=== PATIENT | female | born 1965 | race Caucasian/White ===

== ENCOUNTER → 2023-02-28 08:09 | Outpatient (BNVA) | payer OTHER, SELFPAY | PROVIDERS: PCP Internal Medicine; Visit Provider Internal Medicine Rheumatology | DX: M79.641 Pain in right hand (principal); M79.642 Pain in left hand; M79.671 Pain in right foot; M79.672 Pain in left foot; M65.9 Synovitis and tenosynovitis, unspecified; R74.01 Elevation of levels of liver transaminase levels | CPT/HCPCS: 20550; 99202 ==

== ENCOUNTER 2023-02-28 09:15 | Outpatient (REF) | payer OTHER, SELFPAY ==
[2023-02-28 11:08] LABS: Erythrocyte Sedimentation Rate 22 MM/HR (0-20)
[2023-02-28 11:13] LABS: Alanine Aminotransferase 122 U/L (0-31); Albumin Level 4.5 g/dL (3.5-5.0); Alkaline Phosphatase 92 U/L (39-117); Anion Gap 14 (12-20); Aspartate Amino Transferase 48 U/L (5-31); Bilirubin Total 0.5 mg/dL (0.0-1.0); Blood Urea Nitrogen 13 mg/dL (9-16); C Reactive Protein 0.89 mg/dL (< or = 0.50); Calcium 9.6 mg/dL (8.4-10.2); Carbon Dioxide 24 mmol/L (22-29); Chloride 106 mmol/L (96-108); Estimated Glomerular Filt Rate > 60; Glucose Random 152 mg/dL (60-115); Potassium 4.3 mmol/L (3.3-5.1); Sodium 140 mmol/L (135-145); Total Protein 7.3 g/dL (6.5-8.0)
[2023-03-01 04:52] LABS: HBc Num1 0.13 S/CO (0.00-0.79); HBsAGNum1 0.36 S/CO (0.00-0.99); Hepatitis A Antibody IgM 0.53 Index (0-0.79); Hepatitis B Core Antibody Nonreactive (Nonreactive); Hepatitis B Surface Antigen Negative (Negative); ~HepC Num1 0.14 S/CO (0.00-0.79); ~Hepatitis A Antibody IgM Nonreactive (Nonreactive); ~Hepatitis B Surface Antibody NONREACTIVE (Nonreactive); ~Hepatitis C Antibody Nonreactive (Nonreactive)
[2023-03-01 18:29] LABS: Lyme Abs Screen <0.90 index
[2023-03-05 14:28] LABS: Mitochondrial Antibodies NEGATIVE (NEGATIVE)
[2023-03-05 23:48] LABS: Smooth Muscle Antibody <20 U (<20)
== END 2023-02-28 09:16 | disposition home or self-care (01) ==
LOC: HO.10HDL 09:15
PROVIDERS: Visit Provider Internal Medicine Rheumatology
DX: M79.641 Pain in right hand (principal); M79.642 Pain in left hand; M79.671 Pain in right foot; M79.672 Pain in left foot; M65.9 Synovitis and tenosynovitis, unspecified; R74.01 Elevation of levels of liver transaminase levels
CPT/HCPCS: 20550; 36415; 80053; 85652; 86015; 86140; 86255; 86256; 86617; 86618; 86704; 86706; 86709; 86803; 87340

== ENCOUNTER 2023-09-04 08:55 | Outpatient (REF) | payer OTHER, SELFPAY ==
--- NOTE | ~2023-09-04 | XR_ITS ---
EXAMINATION: XR KNEE, RIGHT CLINICAL INFORMATION: Pain in right knee, additional pass injury COMPARISON: None available. TECHNIQUE: Four views of the right knee. FINDINGS: Mild medial joint space narrowing and small medial marginal osteophytes. No significant joint effusion. Tiny posterior patellar osteophytes. XR/XR knee RT 4V IMPRESSION: Mild degenerative changes
== END 2023-09-04 08:56 | disposition home or self-care (01) ==
LOC: HO.XRAY 08:55
PROVIDERS: PCP Internal Medicine; Visit Provider Internal Medicine Rheumatology
DX: M25.561 Pain in right knee (principal); G56.01 Carpal tunnel syndrome, right upper limb; M65.9 Synovitis and tenosynovitis, unspecified
CPT/HCPCS: 73564; 99212

== ENCOUNTER 2023-09-04 08:55 | Outpatient (AMB) | payer OTHER, SELFPAY ==
[2023-09-04 08:57] VITALS: BP 124/76; PULSE 85; TEMP 36.1; O2SAT 99; BMI 36.3
--- NOTE | 2023-09-04 08:57 | MHC.OFFVIS ---
Intake Vital Signs 09/04/23 08:57 Height 5 ft Weight 185 lb 13.595 oz BMI 36.3 BP 124/76 Blood Pressure Location Rt brachial Position Sitting Pulse 85 Pulse Source Pulse Oximeter Temp 97 F Temp Source Skin Pulse Oximetry (%) 99 Oxygen Delivery Method Room Air Intake Visit Reasons: Bilateral Hand swelling Intake Note: Patient presents today for devin hand swelling. Reports pain and swelling has spread to other joints in the past 4-5 months. 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 She is on an aromatase inhibitor for her breast cancer, letrozole 2.5 mg daily. She was seen last in February and given bilateral thumb flexor tendon corticosteroid injections for tenosynovitis. Those did help both hands although the right hand pain has started to come back. She however also was developed now some pain in the right knee. This occurred while she was working about 3 weeks ago. 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 The knee was swollen for a few days. She still has trouble doing squats but the swelling has subsided. She does take occasional naproxen or Tylenol. She does not recall prior problems with the knee. She also has developed paresthesias in the right hand over the last 6-8 weeks. This seems to occur at night but also with activity during the day. 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 Adenoma of colon Macromastia Surgical History Hx of hysterectomy S/P breast lumpectomy H/O breast biopsy Family History Mother Hyperlipidemia Diabetes HTN (hypertension) Depression Father Bone cancer Paternal Aunt Breast cancer Brother Anxiety Social History (Updated 09/04/23 @ 09:00 by Ida Diaz [facility]) Household Members: Significant Other and Children Alcohol intake: current Alcohol intake frequency: a few times a week Alcohol type: wine e-Cigarette/Vaping Use: Currently Using Review of Systems Const Details: She was able to lose some weight when she was taking the metformin for prediabetes. Negative for appetite change, fever, chills, malaise and fatigue Eyes Details: Negative for vision change, dry eyes,headaches and dizziness GI Details: Negative indigestion/heartburn, nausea, abdominal pain, bowel changes, diarrhea, constipation and bloody stool. Skin/Breast Details: Negative for itching, rash, hives, Raynaud's symptoms, sun sensitivity, and skin cancer Neuro Details: Intermittent right hand numbness, a bit more prominent over the fingertips of the 2nd 3rd fingers. Negative for epilepsy, palsy, stroke, changes in speech,and weakness Psych Details: She is on some venlafaxine for depression but wants to consider tapering off it. She does admit to more anxiety when she has tried to taper it. Negative for depression and stress Endo Details: Negative for polyuria and polydypsia Fer/Lymph Details: Negative for excessive bruising or bleeding. Physical Exam Vital Signs: Last Vital Signs Temp 97 F 09/04/23 08:57 Pulse 85 09/04/23 08:57 BP 124/76 09/04/23 08:57 Pulse Ox 99 09/04/23 08:57 Oxygen Delivery Method Room Air 09/04/23 08:57 BMI result Body Mass Index 36.3 APPEARANCE: Patient in no acute distress EXTREMITIES: No edema, no calf tenderness, normal peripheral pulses. NEURO: Oriented and alert x3. No focal weakness. Reflexes symmetric. Gait normal. SKIN: No inflammatory or neoplastic lesions. Normal color and turgor JOINT EXAM:?? Cervical Spine:? Full range of motion with mild discomfort. No tenderness. Thoracic Spine:? No scoliosis.? No tenderness on palpation. Lumbar Spine:.? Alignment normal.? Full range of motion with slight pain at full flexion. No tenderness. Chest Wall:.? No tenderness, swelling, increased warmth or erythema. Hands:.? Right: no pain with range of motion of the thumb. There is some slight flexor tendon tenderness without swelling or triggering today. There is no tenderness or swelling of the MCP joints. The thumb IP has some mild bony enlargement without tenderness. Other joints have normal pain-free range of motion without tenderness, swelling, increased warmth or erythema. There is no thenar atrophy or sensory loss. Left: no tenderness of the flexor tendon no swelling or triggering Elsewhere no tenderness or swelling. No other flexor tenderness, triggering, thenar atrophy or sensory loss. Wrists: Right: Positive Tinel sign but negative Phalen's sign. No tenderness or swelling. Pain-free range of motion. Left:? Normal pain-free range of motion without tenderness, swelling, increased warmth or erythema. Negative Phalen's and Tinel signs. Elbows:. Normal pain-free range of motion without tenderness, swelling, increased warmth or erythema. Shoulders:.?? Full range of motion without pain. No tenderness, weakness, swelling, increased warmth or erythema. Hips:.? Full range of motion without pain. Hip bursa:.? No tenderness. Knees:.? Right: Mild pain with full extension or flexion. Most of the pain is on the medial aspect of the knee. There is mild medial compartment tenderness and pain with stressing of the medial compartment. There is no redness or effusion. There is trace patellofemoral crepitus. Left:? Normal pain-free range of motion with slight patellofemoral crepitus. There is no tenderness without effusion, swelling, increased warmth or erythema.? Ankles:.? Normal pain-free range of motion with slight tenderness but no swelling, increased warmth or erythema. Feet:.? Normal pain-free range of motion. There is slight tenderness over the 1st 2 MTP joints but they do not seem to be swollen. Elsewhere there is no sensory loss, tenderness, swelling, increased warmth or erythema. Tender points:? No tenderness to digital palpation at the occiput, trapezius, second rib, lateral epicondyle, knees, greater trochanter and gluteal area bilaterally. ? ? Results Reviewed Results Reviewed: Laboratory Tests 02/28/23 09:28 ESR 22 H Creatinine 0.77 AST 48 H ALT 122 H C-Reactive Protein 0.89 H Anti-Mitochondrial Ab NEGATIVE Anti-Smooth Muscle Ab <20 Assessment & Plan Assessment & Plan (1) Knee pain, right: Code(s): M25.561 - Pain in right knee (2) Carpal tunnel syndrome on right: Code(s): G56.01 - Carpal tunnel syndrome, right upper limb (3) Flexor tenosynovitis of thumb: Code(s): M65.9 - Synovitis and tenosynovitis, unspecified Plan She has had some improvement in the thumb flexor tenosynovitis with corticosteroid injections. I told her we cannot do these very frequently and would not do any further injections until 6 months after the previous ones. Additionally if symptoms continue in this fashion a surgical approach would be more appropriate. It is possible that the letrozole is giving her these arthralgias. I told her I would not recommend tapering the antidepressants since in patients with aromatase induced arthralgias antidepressants have been somewhat helpful. She has also developed hand paresthesias suggesting nerve compression at the wrist consistent with a right carpal tunnel syndrome. I gave her a printed prescription for a wrist splint to wear nightly for 6 weeks to see if that improves those symptoms. She also has medial compartment tenderness in the right knee following a twisting injury with the knee flexed. This sounds like it could be a meniscal injury. Symptoms have improved a bit on their own but I think physical therapy may be helpful as well. She will be referred for PT. She is worried about her blood pressures so I suggested acetaminophen up to 1 g t.i.d. rather than naproxen. A recheck in 2 months would be reasonable. If paresthesias continue, then nerve conduction studies would be reasonable to consider. Additionally if the knee remains a problem she may need orthopedic evaluation and MRI scanning. An x-ray of the knee is ordered for today. Orders: Orders PT Evaluation and Treatment Today M25.561 - Pain in right knee Medications: New arm brace (Wrist Brace) wear nightly on right wrist 1 ea 0RF G56.02 - Carpal tunnel syndrome, left upper limb Coding Level of Care Code Est Pt Level 4 (03862) Diagnoses Knee pain, right M25.561 Carpal tunnel syndrome on right G56.01 Flexor tenosynovitis of thumb M65.9
== END 2023-09-04 09:42 | disposition home or self-care (01) ==
LOC: HO.RHE 08:55
PROVIDERS: PCP Internal Medicine; Visit Provider Internal Medicine Rheumatology
DX: M25.561 Pain in right knee (principal); G56.01 Carpal tunnel syndrome, right upper limb; M65.9 Synovitis and tenosynovitis, unspecified
CPT/HCPCS: 99214

== ENCOUNTER 2023-11-05 09:17 | Outpatient (AMB) | payer OTHER, SELFPAY ==
--- NOTE | 2023-11-05 09:19 | MHC.OFFVIS ---
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 Reports worsening devin hand pain and numbness. Manager Telecom Required: No Accompanied by: Self / Same As Patient Allergies No Known Allergies Allergy (Verified 11/05/23 09:27) HPI HPI Comments History of Present Illness Details Ms. Butler 57-year-old female, returns for follow-up evaluation of her bilateral hand pain. She has a history of type 2 diabetes mellitus, total hysterectomy secondary to uterine and cervical cancer and breast cancer. She is on an aromatase inhibitor for her breast cancer, letrozole 2.5 mg daily. She was seen last in August 2023 and given bilateral wrist injections for CTS. In February 2023 she was given bilateral thumb flexor tendon corticosteroid injections for tenosynovitis. Those did help both hands although the right hand pain has started to come back and she has been having numbness to ring and middle fingers since CTS injections. Her thumbs also lock intermittently and is very painful when she opens them to release the triggering. She continues with pain in the right knee. This occurred while she was working July 2023. 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 The knee was swollen for a few days. She still has trouble doing squats but the swelling has subsided. She does take occasional naproxen or Tylenol. She does not recall prior problems with the knee. She also has continued paresthesias in the right hand. This seems to occur at night but also with activity during the day. 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 Adenoma of colon Macromastia Surgical History Hx of hysterectomy S/P breast lumpectomy H/O breast biopsy Family History Mother Hyperlipidemia Diabetes HTN (hypertension) Depression Father Bone cancer Paternal Aunt Breast cancer Brother Anxiety Social History Household Members: Significant Other and Children Alcohol intake: current Alcohol intake frequency: a few times a week Alcohol type: wine e-Cigarette/Vaping Use: Currently Using Review of Systems Const All systems reviewed & are unremarkable except as noted in HPI and below Physical Exam Vital Signs: Last Vital Signs Temp 97 F 11/05/23 09:26 Pulse 85 11/05/23 09:26 BP 112/60 11/05/23 09:26 Pulse Ox 96 11/05/23 09:26 Oxygen Delivery Method Room Air 11/05/23 09:26 BMI result Body Mass Index 36.6 APPEARANCE: Patient in no acute distress EXTREMITIES: No edema, no calf tenderness, normal peripheral pulses. NEURO: Oriented and alert x3. No focal weakness. Reflexes symmetric. Gait normal. SKIN: No inflammatory or neoplastic lesions. Normal color and turgor JOINT EXAM:?? Cervical Spine:? Full range of motion with mild discomfort. No tenderness. Thoracic Spine:? No scoliosis.? No tenderness on palpation. Lumbar Spine:.? Alignment normal.? Full range of motion with slight pain at full flexion. No tenderness. Chest Wall:.? No tenderness, swelling, increased warmth or erythema. Hands:.? Right: no pain with range of motion of the thumb. There is some slight flexor tendon tenderness without swelling or triggering today. There is no tenderness or swelling of the MCP joints. The thumb IP has some mild bony enlargement without tenderness. Other joints have normal pain-free range of motion without tenderness, swelling, increased warmth or erythema. There is no thenar atrophy or sensory loss. Left: no tenderness of the flexor tendon no swelling or triggering Elsewhere no tenderness or swelling. No other flexor tenderness, triggering, thenar atrophy or sensory loss. Wrists: Right: Positive Tinel sign but negative Phalen's sign. No tenderness or swelling. Pain-free range of motion. Left:? Normal pain-free range of motion without tenderness, swelling, increased warmth or erythema. Negative Phalen's and Tinel signs. Elbows:. Normal pain-free range of motion without tenderness, swelling, increased warmth or erythema. Shoulders:.?? Full range of motion without pain. No tenderness, weakness, swelling, increased warmth or erythema. Hips:.? Full range of motion without pain. Hip bursa:.? No tenderness. Knees:.? Right: Mild pain with full extension or flexion. Most of the pain is on the medial aspect of the knee. There is mild medial compartment tenderness and pain with stressing of the medial compartment. There is no redness or effusion. There is trace patellofemoral crepitus. Left:? Normal pain-free range of motion with slight patellofemoral crepitus. There is no tenderness without effusion, swelling, increased warmth or erythema.? Ankles:.? Normal pain-free range of motion with slight tenderness but no swelling, increased warmth or erythema. Feet:.? Normal pain-free range of motion. There is slight tenderness over the 1st 2 MTP joints but they do not seem to be swollen. Elsewhere there is no sensory loss, tenderness, swelling, increased warmth or erythema. Tender points:? No tenderness to digital palpation at the occiput, trapezius, second rib, lateral epicondyle, knees, greater trochanter and gluteal area bilaterally. ? ? Assessment & Plan Assessment & Plan (1) Knee pain, right: Code(s): M25.561 - Pain in right knee Qualifiers: Chronicity: chronic Qualified Code(s): M25.561 - Pain in right knee; G89.29 - Other chronic pain (2) Carpal tunnel syndrome on right: Code(s): G56.01 - Carpal tunnel syndrome, right upper limb (3) Flexor tenosynovitis of thumb: Code(s): M65.9 - Synovitis and tenosynovitis, unspecified (4) Bilateral hand pain: Code(s): M79.641 - Pain in right hand; M79.642 - Pain in left hand Plan #Bilateral hand pain/tenosynovitis: While she has had some improvement in the thumb flexor tenosynovitis with corticosteroid injections, there is return of symptoms and her thumbs continue to lock. I reiterated to her that we cannot do these very frequently and would not do any further injections until 6 months after the previous ones. Additionally if symptoms continue in this fashion a surgical approach would be more appropriate. I have not see labs for Rheumatology workup. Given that she continues with elevated CRP/ESR and hand pain and swelling, it is reasonable to order these and evaluate for RA and inflammatory causes. #Right knee pain: She also has medial compartment tenderness in the right knee following a twisting injury with the knee flexed. This sounds like it could be a meniscal injury. She had not started PT as referred from last visit. The pain continues down the back of her leg and she feels a pull in the muscles and further pain under her feet. With this I think she would benefit from Ortho evaluation who may then determine if MRI scanning is necessary. An x-ray of the knee showed mild OA which I do not think matches her symptoms. #Carpal Tunnel Syndrome: She has continue hand paresthesias suggesting nerve compression at the wrist consistent with a right carpal tunnel syndrome. She has been wearing wrist splint nightly but denies much improvement in those symptoms. At this point it makes sense to have an EMG study to determine the extent of nerve compression to her hands. I have spent 35 minutes reviewing chart, evaluating and examining patient, and documenting. Orders: Orders C Reactive Protein Today M19.90 - Unspecified osteoarthritis, unspecified site, M79.641 - Pain in right hand, M79.642 - Pain in left hand, M79.89 - Other specified soft tissue disorders Comprehensive Met. Panel Today M19.90 - Unspecified osteoarthritis, unspecified site, M79.641 - Pain in right hand, M79.642 - Pain in left hand, M79.89 - Other specified soft tissue disorders Creatine Kinase Total Today M19.90 - Unspecified osteoarthritis, unspecified site, M79.641 - Pain in right hand, M79.642 - Pain in left hand, M79.89 - Other specified soft tissue disorders Erythrocyte Sedimentation Rate Today M19.90 - Unspecified osteoarthritis, unspecified site, M79.641 - Pain in right hand, M79.642 - Pain in left hand, M79.89 - Other specified soft tissue disorders Anti Extractable Nuclear Ag Today M19.90 - Unspecified osteoarthritis, unspecified site, M79.641 - Pain in right hand, M79.642 - Pain in left hand, M79.89 - Other specified soft tissue disorders T Spot TB Today M19.90 - Unspecified osteoarthritis, unspecified site, M79.641 - Pain in right hand, M79.642 - Pain in left hand, M79.89 - Other specified soft tissue disorders Uric Acid Today M19. - Unspecified osteoarthritis, unspecified site, M79.641 - Pain in right hand, M79.642 - Pain in left hand, M79.89 - Other specified soft tissue disorders Rheumatoid Factor Today M19. - Unspecified osteoarthritis, unspecified site, M79.641 - Pain in right hand, M79.642 - Pain in left hand, M79.89 - Other specified soft tissue disorders Cyclic Citrullinated Peptide Today M1. - Unspecified osteoarthritis, unspecified site, M79.641 - Pain in right hand, M79.642 - Pain in left hand, M79.89 - Other specified soft tissue disorders Complete Blood Count Auto Diff Today M19. - Unspecified osteoarthritis, unspecified site, M79.641 - Pain in right hand, M79.642 - Pain in left hand, M79.89 - Other specified soft tissue disorders Hepatitis A,B,C Profile Today M1. - Unspecified osteoarthritis, unspecified site, M79.641 - Pain in right hand, M79.642 - Pain in left hand, M79.89 - Other specified soft tissue disorders PASHA Reflex Titer and Pattern Today M1. - Unspecified osteoarthritis, unspecified site, M79.641 - Pain in right hand, M79.642 - Pain in left hand, M79.89 - Other specified soft tissue disorders HLA B27 Today M1. - Unspecified osteoarthritis, unspecified site, M79.641 - Pain in right hand, M79.642 - Pain in left hand, M79.89 - Other specified soft tissue disorders NE electromyogram (EMG) Today G56.01 - Carpal tunnel syndrome, right upper limb, R20.2 - Paresthesia of skin Referrals Orthopedics Referral M25.561 - Pain in right knee Coding Level of Care Code Est Pt Level 4 (61927) Diagnoses Chronic pain of right knee M25.561; G89.29 Chronicity: chronic Carpal tunnel syndrome on right G56.01 Flexor tenosynovitis of thumb M65.9 Bilateral hand pain M79.641; M79.642
[2023-11-05 09:26] VITALS: BP 112/60; PULSE 85; TEMP 36.1; O2SAT 96; BMI 36.6
== END 2023-11-05 10:02 | disposition home or self-care (01) ==
LOC: HO.RHE 09:17
PROVIDERS: PCP Internal Medicine; Visit Provider Nurse Practitioner Family
DX: M25.561 Pain in right knee (principal); G89.29 Other chronic pain; G56.01 Carpal tunnel syndrome, right upper limb; M65.9 Synovitis and tenosynovitis, unspecified; M79.641 Pain in right hand; M79.642 Pain in left hand
CPT/HCPCS: 99214

== ENCOUNTER → 2023-11-05 09:17 | Outpatient (BNVA) | payer OTHER, SELFPAY | PROVIDERS: PCP Internal Medicine; Visit Provider Nurse Practitioner Family | DX: G56.01 Carpal tunnel syndrome, right upper limb (principal); M25.561 Pain in right knee; M65.9 Synovitis and tenosynovitis, unspecified; M79.641 Pain in right hand; M79.642 Pain in left hand; G89.29 Other chronic pain | CPT/HCPCS: 99212 ==

== ENCOUNTER 2023-11-14 13:31 | Outpatient (AMB) | payer OTHER, SELFPAY ==
--- NOTE | 2023-11-14 13:52 | A.OFFVIS_ITS ---
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 Patient has used tylenol, ice, and heat but pain is still there. The patient states that her right knee will give out several times per day. She has done physical therapy exercises which aggravated her pain. 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 Adenoma of colon Macromastia Surgical History Hx of hysterectomy S/P breast lumpectomy H/O breast biopsy Family History Mother Hyperlipidemia Diabetes HTN (hypertension) Depression Father Bone cancer Paternal Aunt Breast cancer Brother Anxiety Social History Household Members: Significant Other and Children Alcohol intake: current Alcohol intake frequency: a few times a week Alcohol type: wine e-Cigarette/Vaping Use: Currently Using Physical Exam Vital Signs: BMI result Body Mass Index 36.6 Const Other: Well-nourished well-developed very friendly female awake alert and oriented x3 in no acute distress Extrem Other: Bilateral lower extremity examination shows good capillary refill, no skin lesions noted, normal sensation light touch Right knee examination shows a minimal effusion, minimal crepitus with range of motion, tenderness along her medial joint line, positive Brad's test, no instability Results Reviewed Results Reviewed: Standing full weight-bearing x-rays of the patient's right knee show minimal joint space narrowing, no acute bony abnormalities Assessment & Plan Assessment & Plan (1) Knee pain, right: Code(s): M25.561 - Pain in right knee Qualifiers: Chronicity: chronic Qualified Code(s): M25.561 - Pain in right knee; G89.29 - Other chronic pain Plan Ms. Mcleod presents with right knee pain and mechanical symptoms most likely due to a tear of her medial meniscus. Thus, I will send the patient for an MRI of her right knee for further evaluation. I will see the patient back once the MRI is completed to further discuss the findings and treatment options. Feel free to call me at any time should questions regarding her orthopedic management arise. Thank you very much for asking me to see this very friendly patient. I spent 22 minutes in reviewing the patient's records and imaging studies, seeing the patient and documenting in the medical record. Orders: Orders MR knee RT wo con 11/14/23 M25.561 - Pain in right knee Coding Level of Care Code New Pt Level 2 (11433) Diagnoses Chronic pain of right knee M25.561; G89.29 Chronicity: chronic
[2023-11-14 13:53] VITALS: BMI 36.6
== END 2023-11-14 14:33 | disposition home or self-care (01) ==
PROVIDERS: PCP Internal Medicine; Visit Provider Orthopaedic Surgery
DX: M25.561 Pain in right knee (principal); G89.29 Other chronic pain
CPT/HCPCS: 99202

== ENCOUNTER → 2023-11-14 13:31 | Outpatient (BNVA) | payer OTHER, SELFPAY | PROVIDERS: PCP Internal Medicine; Visit Provider Orthopaedic Surgery | DX: M25.561 Pain in right knee (principal); G89.29 Other chronic pain | CPT/HCPCS: 99202 ==

== ENCOUNTER 2024-01-03 09:35 | Outpatient (REF) | payer OTHER, SELFPAY ==
--- NOTE | 2024-01-03 09:39 | EMG_ITS ---
Chief complaint: Right hand pain and numbness Reason for referral: Evaluate for Carpal Tunnel Syndrome Referred by: Taylor Birch NP Procedure done: Right upper extremity NCS/EMG Precautions and/or limitations: None Nerve Conduction Studies Anti Sensory Summary Table ?Stim Site NR Onset (ms) Norm Onset (ms) Peak (ms) Norm Peak (ms) O-P Amp (?V) Norm O-P Amp Site1 Site2 Delta-0 (ms) Dist (cm) Buddy (m/s) Norm Buddy (m/s) Right Median Anti Sensory (2nd Digit) Wrist ? 5.3 6.6 <3.6 10.0 >10 Wrist 2nd Digit 5.3 14.0 26 Right Radial Anti Sensory (Thumb) Forearm ? 1.3 2.0 <3.1 33.9 Forearm Thumb 1.3 0.0 Right Ulnar Anti Sensory (5th Digit) Wrist ? 2.5 3.3 <3.7 15.6 >15.0 Wrist 5th Digit 2.5 14.0 56 Motor Summary Table ?Stim Site NR Onset (ms) Norm Onset (ms) O-P Amp (mV) Norm O-P Amp iAmp (mV) Amp (1st) (%) Site1 Site2 Delta-0 (ms) Dist (cm) Buddy (m/s) Norm Buddy (m/s) Right Median Motor (Abd Poll Brev) Wrist ? 6.4 <3.9 12.2 >4.5 14.3 100.0 Elbow Wrist 3.3 18.0 55 >45 Elbow ? 9.7 11.7 14.0 95.9 Right Ulnar Motor (Abd Dig Minimi) Wrist ? 3.0 <3.0 10.3 >5 13.8 100.0 B Elbow Wrist 2.7 16.0 59 >45 B Elbow ? 5.7 9.6 13.0 93.2 A Elbow B Elbow 1.3 10.0 77 >45 A Elbow ? 7.0 10.2 13.6 99.0 EMG ?Side Muscle Nerve Root Ins Act Fibs Psw Amp Dur Poly Recrt Int Pat Comment Right 1stDorInt Ulnar C8-T1 Nml Nml Nml Nml Nml 0 Nml Complete Right FlexCarRad Median C6-7 Nml Nml Nml Nml Nml 0 Nml Complete Right Biceps Musculocut C5-6 Nml Nml Nml Nml Nml 0 Nml Complete Right Triceps Radial C6-7-8 Nml Nml Nml Nml Nml 0 Nml Complete Right Deltoid Axillary C5-6 Nml Nml Nml Nml Nml 0 Nml Complete The limb temperature was monitored continuously and remained between 32-36 degrees C during the performance of the NCS. FINDINGS: Right median motor nerve showed prolonged distal latency, normal amplitude and normal conduction velocity. Right median sensory nerve showed prolonged peak latency. All other nerves tested were within normal. Concentric needle EMG was performed in selected muscles of the right upper extremity. Study did not reveal signs of electric abnormalities as shown in the table below. IMPRESSION: 1. This is an abnormal study. 2. There is electrodiagnostic evidence for right moderate-severe median neuropathy at the wrist, consistent with carpal tunnel syndrome. 3. There is no electrodiagnostic evidence for ulnar neuropathy, brachial plexopathy, or cervical radiculopathy. Thank you for your kind referral. Daisy Piña MD, JOSE LUIS Board Certified, [place] Board [employer] and [employer] (ABPMR) Board Certified, [place] Board of Electrodiagnostic [employer] (ABEM) [place] [id number] [facility]
== END 2024-01-03 09:36 | disposition home or self-care (01) ==
LOC: HO.NEURO 09:35
PROVIDERS: PCP Internal Medicine; Visit Provider Nurse Practitioner Family
DX: G56.01 Carpal tunnel syndrome, right upper limb (principal); R20.2 Paresthesia of skin
CPT/HCPCS: 95886; 95909

== ENCOUNTER → 2024-01-03 09:39 | Outpatient (BNV) | payer OTHER, SELFPAY | PROVIDERS: PCP Internal Medicine; Visit Provider Physical Medicine & Rehabilitation | DX: G56.01 Carpal tunnel syndrome, right upper limb (principal); G56.11 Other lesions of median nerve, right upper limb | CPT/HCPCS: 95886; 95909 ==

== ENCOUNTER 2024-02-20 18:07 | Outpatient (REF) | payer OTHER, SELFPAY ==
--- NOTE | ~2024-02-20 | MR_ITS ---
EXAMINATION: MR KNEE WITHOUT CONTRAST, RIGHT CLINICAL INFORMATION: Right knee pain. COMPARISON: None available. TECHNIQUE: MRI of the knee without contrast was performed using routine sequences on a high-field scanner. FINDINGS: MENISCI: Medial Meniscus: A complex tear is present at the posterior horn and body with an undersurface flap fragment extending into the meniscotibial recess. This flap fragment measures 1.2 cm AP. There is a radial component to the tear at the posterior horn, occurring 1.5 cm from the posterior root. Lateral Meniscus: Intact. LIGAMENTS: Cruciate: Intact. Collateral: Edema signal around the MCL is likely reactive to the underlying meniscal abnormality. Collateral ligaments are intact. EXTENSOR MECHANISM: Intact. ARTICULAR CARTILAGE/BONE: Patellofemoral Compartment: Chondral fissures are present at the median ridge of the patella and at the central trochlea and medial trochlear facet. Small marginal osteophytes. There is a thin medial plica. Medial Compartment: Small marginal osteophytes. Minimal focal subchondral edema at the medial tibial plateau. Lateral Compartment: Normal. JOINT FLUID AND BURSAE: Small Posye's cyst. No joint effusion. MR/MR knee RT wo con IMPRESSION: 1. Complex flap tear at the posterior horn and body of the medial meniscus. 2. Minimal patellofemoral and medial compartment osteoarthritis. 3. Small Posey's cyst.
== END 2024-02-20 18:08 | disposition home or self-care (01) ==
LOC: HO.MRI 18:07
PROVIDERS: PCP Internal Medicine; Visit Provider Orthopaedic Surgery
DX: M25.561 Pain in right knee (principal)
CPT/HCPCS: 73721

== ENCOUNTER 2024-02-26 13:34 | Outpatient (AMB) | payer OTHER, SELFPAY ==
[2024-02-26 13:37] VITALS: BMI 36.5
--- NOTE | 2024-02-26 13:37 | MHC.OFFVIS ---
Vital Signs 02/26/24 13:37 Height 5 ft Weight 187 lb BMI 36.5 Intake Visit Reasons: OV- MRI review Right knee Intake Note: Carrie is a 57 year old female who presents with complaints of progressively worsening right knee pain and giving way. 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 Patient has used tylenol, ice, and heat but pain is still there. The patient states that her right knee will give out several times per day. She has done physical therapy exercises which aggravated her pain. 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 Adenoma of colon Macromastia Surgical History Hx of hysterectomy S/P breast lumpectomy H/O breast biopsy Family History Mother Hyperlipidemia Diabetes HTN (hypertension) Depression Father Bone cancer Paternal Aunt Breast cancer Brother Anxiety Social History Household Members: Significant Other and Children Alcohol intake: current Alcohol intake frequency: a few times a week Alcohol type: wine e-Cigarette/Vaping Use: Currently Using Physical Exam Vital Signs: BMI result Body Mass Index 36.5 Const Other: Well-nourished well-developed very friendly female awake alert and oriented x3 in no acute distress Extrem Other: Bilateral lower extremity examination shows good capillary refill, no skin lesions noted, normal sensation light touch Right knee examination shows a minimal effusion, minimal crepitus with range of motion, tenderness along her medial and lateral joint lines, positive Brad's test, no instability Results Reviewed Results Reviewed: Standing full weight-bearing x-rays of the patient's right knee show minimal joint space narrowing, no acute bony abnormalities MRI of the patient's right knee shows mild diffuse degenerative changes as well as tearing of the medial and lateral menisci, no acute bony abnormalities Assessment & Plan Assessment & Plan (1) Tear of medial meniscus of right knee: Code(s): S83.241A - Other tear of medial meniscus, current injury, right knee, initial encounter Category: Medical Plan Ms. Mcleod presents with progressively worsening right knee pain and mechanical symptoms due to tearing of her medial and lateral menisci. I had a lengthy discussion with the patient regarding the treatment options. At this point she has failed continued non operative treatments. The risks and benefits of right knee arthroscopic surgery were discussed at length with the patient. The patient wishes to proceed with surgery. Surgery will most likely involve right knee diagnostic arthroscopy with arthroscopic partial medial and lateral meniscectomies. She does understand that she may not get 100% relief of her symptoms depending on the severity of her degenerative changes. The patient will be scheduled for next available date. She will follow-up as instructed. Feel free to call me at any time should questions regarding her orthopedic management arise. Thank you very much for asking me to see this very friendly patient. I spent 21 minutes in reviewing the patient's records and imaging studies, seeing the patient and documenting in the medical record. Coding Level of Care Code Est Pt Level 3 (69749) Diagnoses Tear of medial meniscus of right knee S83.241A
== END 2024-02-26 14:11 | disposition home or self-care (01) ==
PROVIDERS: PCP Internal Medicine; Visit Provider Orthopaedic Surgery
DX: S83.241A Other tear of medial meniscus, current injury, right knee, initial encounter (principal)
CPT/HCPCS: 99213

== ENCOUNTER → 2024-02-26 13:34 | Outpatient (BNVA) | payer OTHER, SELFPAY | PROVIDERS: PCP Internal Medicine; Visit Provider Orthopaedic Surgery | DX: S83.241A Other tear of medial meniscus, current injury, right knee, initial encounter (principal); X50.1XXA Overexertion from prolonged static or awkward postures, initial encounter; Y93.F2 Activity, caregiving, lifting; Y92.198 Other place in other specified residential institution as the place of occurrence of the external cause; Y99.0 Civilian activity done for income or pay | CPT/HCPCS: 99212 ==

== ENCOUNTER 2024-03-25 11:31 | Outpatient (AMB) | payer OTHER, SELFPAY ==
--- NOTE | 2024-03-25 11:36 | MHC.OFFVIS ---
Vital Signs 03/25/24 11:40 Height 5 ft Weight 177 lb 11.081 oz BMI 34.7 BP 142/92 H Blood Pressure Location Rt brachial Position Sitting Pulse 78 Pulse Oximetry (%) 98 Intake Visit Reasons: Hand Pain/Right Knee pain Intake Note: Patient presents to office today for hand and knee pain follow up. EMG done 01/03/24. Reports worsening pains. Allergies No Known Allergies Allergy (Verified 03/25/24 11:40) HPI Comments Details: Ms. Butler 57-year-old female, returns for follow-up evaluation of her bilateral hand pain. She has a history of type 2 diabetes mellitus, total hysterectomy secondary to uterine and cervical cancer and breast cancer. She is on an aromatase inhibitor for her breast cancer, letrozole 2.5 mg daily. She was seen last in August 2023 and given bilateral wrist injections for CTS. In February 2023 she was given bilateral thumb flexor tendon corticosteroid injections for tenosynovitis. Those did help both hands although the right hand pain has started to come back and she has been having numbness to ring and middle fingers since CTS injections. Her thumbs also lock intermittently and is very painful when she opens them to release the triggering. She continues with pain in the right knee. This occurred while she was working July 2023. 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 The knee was swollen for a few days. She still has trouble doing squats but the swelling has subsided. She does take occasional naproxen or Tylenol. She does not recall prior problems with the knee. She also has continued paresthesias in the right hand. This seems to occur at night but also with activity during the day. 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 Adenoma of colon Macromastia Surgical History Hx of hysterectomy S/P breast lumpectomy H/O breast biopsy Family History Mother Hyperlipidemia Diabetes HTN (hypertension) Depression Father Bone cancer Paternal Aunt Breast cancer Brother Anxiety Social History (Updated 03/25/24 @ 11:41 by LEELA Kathleen) Household Members: Significant Other and Children Alcohol intake: current Alcohol intake frequency: holidays/special occasions only Patient Tobacco Use Status: Former Tobacco user Review of Systems Const All systems reviewed & are unremarkable except as noted in HPI and below Physical Exam Vital Signs: Last Vital Signs Pulse 78 03/25/24 11:40 BP 142/92 H 03/25/24 11:40 Pulse Ox 98 03/25/24 11:40 BMI result Body Mass Index 34.7 APPEARANCE: Patient in no acute distress EXTREMITIES: No edema, no calf tenderness, normal peripheral pulses. NEURO: Oriented and alert x3. No focal weakness. Reflexes symmetric. Gait normal. SKIN: No inflammatory or neoplastic lesions. Normal color and turgor JOINT EXAM:?? Cervical Spine:? Full range of motion with mild discomfort. No tenderness. Thoracic Spine:? No scoliosis.? No tenderness on palpation. Lumbar Spine:.? Alignment normal.? Full range of motion with slight pain at full flexion. No tenderness. Chest Wall:.? No tenderness, swelling, increased warmth or erythema. Hands:.? Right: no pain with range of motion of the thumb. There is some slight flexor tendon tenderness without swelling or triggering today. There is no tenderness or swelling of the MCP joints. The thumb IP has some mild bony enlargement without tenderness. Other joints have normal pain-free range of motion without tenderness, swelling, increased warmth or erythema. There is no thenar atrophy or sensory loss. Left: no tenderness of the flexor tendon no swelling or triggering Elsewhere no tenderness or swelling. No other flexor tenderness, triggering, thenar atrophy or sensory loss. Wrists: Right: Positive Tinel sign but negative Phalen's sign. No tenderness or swelling. Pain-free range of motion. Left:? Normal pain-free range of motion without tenderness, swelling, increased warmth or erythema. Negative Phalen's and Tinel signs. Elbows:. Normal pain-free range of motion without tenderness, swelling, increased warmth or erythema. Shoulders:.?? Full range of motion without pain. No tenderness, weakness, swelling, increased warmth or erythema. Hips:.? Full range of motion without pain. Hip bursa:.? No tenderness. Knees:.? Right: Mild pain with full extension or flexion. Most of the pain is on the medial aspect of the knee. There is mild medial compartment tenderness and pain with stressing of the medial compartment. There is no redness or effusion. There is trace patellofemoral crepitus. Left:? Normal pain-free range of motion with slight patellofemoral crepitus. There is no tenderness without effusion, swelling, increased warmth or erythema.? Ankles:.? Normal pain-free range of motion with slight tenderness but no swelling, increased warmth or erythema. Feet:.? Normal pain-free range of motion. There is slight tenderness over the 1st 2 MTP joints but they do not seem to be swollen. Elsewhere there is no sensory loss, tenderness, swelling, increased warmth or erythema. Tender points:? No tenderness to digital palpation at the occiput, trapezius, second rib, lateral epicondyle, knees, greater trochanter and gluteal area bilaterally. ? ? Results Reviewed Results Reviewed: Laboratory Tests 03/25/24 12:25 WBC 5.4 RBC 4.56 Hgb 13.9 Hct 41.6 ESR 25 H Calcium 10.3 H D AST 20 ALT 27 C-Reactive Protein 0.57 H Rheumatoid Factor < 13.0 Cycl Citrul Peptide IgG <16 PASHA Screen NEGATIVE Sm (Powell) Antibody <1.0 NEG SM/IMMIGRATION CASE MANAGER IgG Antibody <1.0 NEG HLA-B27 Negative The limb temperature was monitored continuously and remained between 32-36 degrees C during the performance of the NCS. FINDINGS: Right median motor nerve showed prolonged distal latency, normal amplitude and normal conduction velocity. Right median sensory nerve showed prolonged peak latency. All other nerves tested were within normal. Concentric needle EMG was performed in selected muscles of the right upper extremity. Study did not reveal signs of electric abnormalities as shown in the table below. IMPRESSION: 1. This is an abnormal study. 2. There is electrodiagnostic evidence for right moderate-severe median neuropathy at the wrist, consistent with carpal tunnel syndrome. 3. There is no electrodiagnostic evidence for ulnar neuropathy, brachial plexopathy, or cervical radiculopathy. EXAMINATION: MR KNEE WITHOUT CONTRAST, RIGHT CLINICAL INFORMATION: Right knee pain. COMPARISON: None available. TECHNIQUE: MRI of the knee without contrast was performed using routine sequences on a high-field scanner. FINDINGS: MENISCI: Medial Meniscus: A complex tear is present at the posterior horn and body with an undersurface flap fragment extending into the meniscotibial recess. This flap fragment measures 1.2 cm AP. There is a radial component to the tear at the posterior horn, occurring 1.5 cm from the posterior root. Lateral Meniscus: Intact. LIGAMENTS: Cruciate: Intact. Collateral: Edema signal around the MCL is likely reactive to the underlying meniscal abnormality. Collateral ligaments are intact. EXTENSOR MECHANISM: Intact. ARTICULAR CARTILAGE/BONE: Patellofemoral Compartment: Chondral fissures are present at the median ridge of the patella and at the central trochlea and medial trochlear facet. Small marginal osteophytes. There is a thin medial plica. Medial Compartment: Small marginal osteophytes. Minimal focal subchondral edema at the medial tibial plateau. Lateral Compartment: Normal. JOINT FLUID AND BURSAE: Small Posey's cyst. No joint effusion. MR/MR knee RT wo con IMPRESSION: 1. Complex flap tear at the posterior horn and body of the medial meniscus. 2. Minimal patellofemoral and medial compartment osteoarthritis. 3. Small Posey's cyst. Assessment & Plan Assessment & Plan (1) Knee pain, right: Code(s): M25.561 - Pain in right knee Category: Medical Qualifiers: Chronicity: chronic Qualified Code(s): M25.561 - Pain in right knee; G89.29 - Other chronic pain (2) Carpal tunnel syndrome on right: Code(s): G56.01 - Carpal tunnel syndrome, right upper limb Category: Medical (3) Flexor tenosynovitis of thumb: Code(s): M65.9 - Synovitis and tenosynovitis, unspecified Category: Medical (4) Bilateral hand pain: Code(s): M79.641 - Pain in right hand; M79.642 - Pain in left hand Category: Medical Plan #Bilateral hand pain/tenosynovitis: While she has had some improvement in the thumb flexor tenosynovitis with corticosteroid injections, there is return of symptoms and her thumbs continue to lock. I reiterated to her that we cannot do these very frequently and would not do any further injections until 6 months after the previous ones. Additionally if symptoms continue in this fashion a surgical approach would be more appropriate. I have not see labs for Rheumatology workup. Given that she continues with elevated CRP/ESR and hand pain and swelling, it is reasonable to order these and evaluate for RA and inflammatory causes. #Right knee pain: She also has medial compartment tenderness in the right knee following a twisting injury with the knee flexed. She did go for Ortho evaluation and who ordered for MRI scanning and diagnosed complex meniscus tear. She will continue to follow with ortho #Carpal Tunnel Syndrome: She has continue hand paresthesias suggesting nerve compression at the wrist consistent with a right carpal tunnel syndrome. She has been wearing wrist splint nightly but denies much improvement in those symptoms. The EMG study determined moderate to severe CTS. I have spent 25 minutes reviewing chart, evaluating and examining patient, and documenting. Medications: Changed From arm brace wear nightly on right wrist 1 ea 0RF G56.02 - Carpal tunnel syndrome, left upper limb To arm brace (Wrist Brace) - cock-up splint - wear nightly on right wrist 1 ea 0RF G56.02 - Carpal tunnel syndrome, left upper limb Coding Level of Care Code Est Pt Level 3 (53630) Complex EM visit Add On G2211 Diagnoses Chronic pain of right knee M25.561; G89.29 Chronicity: chronic Carpal tunnel syndrome on right G56.01 Flexor tenosynovitis of thumb M65.9 Bilateral hand pain M79.641; M79.642
[2024-03-25 11:40] VITALS: BP 142/92; PULSE 78; O2SAT 98; BMI 34.7
== END 2024-03-25 12:14 | disposition home or self-care (01) ==
PROVIDERS: PCP Internal Medicine; Visit Provider Nurse Practitioner Family
DX: M25.561 Pain in right knee (principal); G89.29 Other chronic pain; G56.01 Carpal tunnel syndrome, right upper limb; M65.9 Synovitis and tenosynovitis, unspecified; M79.641 Pain in right hand; M79.642 Pain in left hand
CPT/HCPCS: 99213; G2211

== ENCOUNTER → 2024-03-25 11:31 | Outpatient (BNVA) | payer OTHER, SELFPAY | PROVIDERS: PCP Internal Medicine; Visit Provider Nurse Practitioner Family | DX: M25.561 Pain in right knee (principal); G89.29 Other chronic pain; G56.01 Carpal tunnel syndrome, right upper limb; M65.9 Synovitis and tenosynovitis, unspecified; M79.641 Pain in right hand; M79.642 Pain in left hand | CPT/HCPCS: 99212 ==

== ENCOUNTER 2024-03-25 12:19 | Outpatient (REF) | payer OTHER, SELFPAY ==
[2024-03-25 13:11] LABS: MANUAL DIFF FLAG NO
[2024-03-25 13:28] LABS: Basophils Absolute Auto 0.1 X10*3/uL (0.0-0.2); Basophils Percent Auto 1.3 % (0-2); Eosinophils Absolute Auto 0.1 X10*3/uL (0.0-0.4); Eosinophils Percent Auto 2.6 % (0-4); Hematocrit 41.6 % (37.0-47.0); Hemoglobin 13.9 g/dl (12.0-16.0); Imm Gran Abs Auto 0.02 X10*3/uL (0.00-0.03); Imm Gran Pct Auto 0.4 % (0.0-0.4); Lymphocytes Absolute Auto 1.9 X10*3/uL (1.2-4.9); Lymphocytes Percent Auto 35.3 % (20-40); Mean Corpuscular HGB Conc 33.4 g/dl (31.0-35.0); Mean Corpuscular Hemoglobin 30.5 pg (27.0-33.0); Mean Corpuscular Volume 91.2 fL (80.0-98.0); Mean Platelet Volume 10.3 fL (9.4-12.3); Monocytes Absolute Auto 0.4 X10*3/uL (0.1-1.2); Monocytes Percent Auto 6.7 % (2-11); Neutrophils Absolute Auto 2.9 x10*3/uL (2.0-8.3); Neutrophils Percent Auto 53.7 % (45-73); Platelet Count 297 X10*3/uL (160-400); Red Blood Count 4.56 X10*6/uL (4.20-5.50); Red Cell Distribution Width 12.4 % (11.0-16.0); White Blood Count 5.4 X10*3/uL (4.8-10.8)
[2024-03-25 13:37] LABS: Rheumatoid Factor < 13.0 IU/mL (<15.0)
[2024-03-25 13:50] LABS: Alanine Aminotransferase 27 U/L (0-31); Albumin Level 4.5 g/dL (3.5-5.0); Alkaline Phosphatase 75 U/L (39-117); Anion Gap 15 (12-20); Aspartate Amino Transferase 20 U/L (5-31); Bilirubin Total 0.4 mg/dL (0.0-1.0); Blood Urea Nitrogen 11 mg/dL (9-16); C Reactive Protein 0.57 mg/dL (< or = 0.50); Calcium 10.3 mg/dL (8.4-10.2); Carbon Dioxide 28 mmol/L (22-29); Chloride 103 mmol/L (96-108); Estimated Glomerular Filt Rate > 60; Glucose Random 118 mg/dL (60-115); Potassium 4.6 mmol/L (3.3-5.1); Sodium 141 mmol/L (135-145); Uric Acid 5.7 mg/dL (2.4-5.7)
[2024-03-25 14:08] LABS: Erythrocyte Sedimentation Rate 25 MM/HR (0-20)
[2024-03-26 08:56] LABS: HBS Num1 0.29 mIU/mL (0-7.99); HBc Num1 0.17 S/CO (0.00-0.79); HBsAGNum1 0.31 S/CO (0.00-0.99); Hepatitis A Antibody IgM 0.63 Index (0-0.79); Hepatitis B Core Antibody Nonreactive (Nonreactive); Hepatitis B Surface Antigen Negative (Negative); ~HepC Num1 0.09 S/CO (0.00-0.79); ~Hepatitis A Antibody IgM Nonreactive (Nonreactive); ~Hepatitis B Surface Antibody NONREACTIVE (Nonreactive); ~Hepatitis C Antibody Nonreactive (Nonreactive)
[2024-03-27 16:00] LABS: Cyclic Citrullinated Peptide <16 UNITS
[2024-03-28 08:32] LABS: TS Negative Control Passed; TS Panel A 1; TS Panel B 0; TS Positive Control Passed; TSpotTB Negative (Negative)
[2024-03-28 17:33] LABS: Anti Nuclear Antibody Screen NEGATIVE (NEGATIVE)
[2024-03-30 16:18] LABS: SM/Ribonucleoprotein Ab <1.0 NEG AI (<1.0 NEG); Smith Protein <1.0 NEG AI (<1.0 NEG)
[2024-03-30 22:03] LABS: HLA B27 Negative (Negative)
== END 2024-03-25 12:20 | disposition home or self-care (01) ==
LOC: HO.10HDL 12:19
PROVIDERS: Visit Provider Nurse Practitioner Family
DX: M19.90 Unspecified osteoarthritis, unspecified site (principal); M79.641 Pain in right hand; M79.642 Pain in left hand; M79.89 Other specified soft tissue disorders
CPT/HCPCS: 36415; 80053; 82550; 84550; 85025; 85652; 86038; 86140; 86200; 86235; 86431; 86481; 86704; 86706; 86709; 86803; 86812; 87340

== ENCOUNTER 2024-04-17 07:31 | Day surgery (SDC) | payer OTHER, SELFPAY ==
[2024-04-14 09:41] VITALS: BMI 36.5
--- NOTE | 2024-04-15 10:11 | HO.ANESPROP2 ---
Documented by User: Karolina Nagy NP 04/15/24 10:12 HPI - Anesthesia Eval Consult details Narrative: 58yo F for Right Knee Arthroscopy medial meniscectomy, lateral meniscectomy PMFSH Active Problems Active Problems: All Active Problems Tear of medial meniscus of right knee (Acute) Paresthesia of hand, bilateral (Acute) Bilateral hand swelling (Acute) Inflammatory arthritis (Acute) Carpal tunnel syndrome on right (Acute) Knee pain, right (Acute) Flexor tenosynovitis of thumb (Acute) Elevated transaminase measurement (Acute) Bilateral foot pain (Acute) Ductal carcinoma in situ (DCIS) of left breast (Acute) GERD (gastroesophageal reflux disease) (Acute) Chronic back pain (Acute) Obesity (Acute) Type 2 diabetes mellitus (Acute) Past Medical History Medical History Paresthesia of hand, bilateral Bilateral hand swelling Inflammatory arthritis Cervical radiculitis HGSIL (high grade squamous intraepithelial lesion) on Pap smear of cervix 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 Adenoma of colon Macromastia Family History Family History Mother Hyperlipidemia Diabetes HTN (hypertension) Depression Father Bone cancer Paternal Aunt Breast cancer Brother Anxiety Surgical History Surgical History Hx of hysterectomy S/P breast lumpectomy H/O breast biopsy Social History Social History Household Members: Significant Other and Children Alcohol intake: current Alcohol intake frequency: holidays/special occasions only Patient Tobacco Use Status: Former Tobacco user Substance Use Frequency: Daily Are you DNR?: No Advance Directives: No Advance Directives Information Provided: Yes Nutrition Risks: No Nutritional Risk Meds Allergies Allergy/AdvReac Type Severity Reaction Status Date / Time No Known Allergies Allergy Verified 04/17/24 07:49 Home Medications ?Medication ?Instructions ?Recorded ?Confirmed ?Last Taken ?Type acetaminophen 500 mg tablet 500 mg PO Q6H PRN Pain, Moderate 02/26/23 04/17/24 Unknown History letrozole 2.5 mg tablet 2.5 mg PO DAILY 02/26/23 04/17/24 04/17/24 History venlafaxine 150 mg 150 mg PO DAILY 02/26/23 04/17/24 04/17/24 History capsule,extended release 24 hr losartan 50 mg tablet 50 mg PO DAILY 02/26/24 04/17/24 Unknown History metformin 500 mg tablet,extended 500 mg PO DAILY 02/26/24 04/17/24 Unknown History release 24 hr Exam Height,Weight and Vital Signs: Height 5 ft Weight 84.822 kg Pertinent Lab Results Pertinent Lab Results: Laboratory Tests 03/25/24 12:25 WBC 5.4 Hgb 13.9 Hct 41.6 Plt Count 297 Sodium 141 Potassium 4.6 Chloride 103 Carbon Dioxide 28 BUN 11 Creatinine 0.75 Assessment and Plan Assessment Anesthesia Assessment: Chart Reviewed Documented by User: Zara Parish MD 04/17/24 09:53 PMFSH Past Medical History Medical History Paresthesia of hand, bilateral Bilateral hand swelling Inflammatory arthritis Cervical radiculitis HGSIL (high grade squamous intraepithelial lesion) on Pap smear of cervix 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 Adenoma of colon Macromastia Family History Family History Mother Hyperlipidemia Diabetes HTN (hypertension) Depression Father Bone cancer Paternal Aunt Breast cancer Brother Anxiety Family history of problems with anesthesia: No Surgical History Surgical History Hx of hysterectomy S/P breast lumpectomy H/O breast biopsy History of Problems with Anesthesia: No Social History Social History Household Members: Significant Other and Children Alcohol intake: current Alcohol intake frequency: holidays/special occasions only Patient Tobacco Use Status: Former Tobacco user Substance Use Frequency: Daily Are you DNR?: No Advance Directives: No Advance Directives Information Provided: Yes Nutrition Risks: No Nutritional Risk Meds Allergies Allergy/AdvReac Type Severity Reaction Status Date / Time No Known Allergies Allergy Verified 04/17/24 07:49 Home Medications ?Medication ?Instructions ?Recorded ?Confirmed ?Last Taken ?Type acetaminophen 500 mg tablet 500 mg PO Q6H PRN Pain, Moderate 02/26/23 04/17/24 Unknown History letrozole 2.5 mg tablet 2.5 mg PO DAILY 02/26/23 04/17/24 04/17/24 History venlafaxine 150 mg 150 mg PO DAILY 02/26/23 04/17/24 04/17/24 History capsule,extended release 24 hr losartan 50 mg tablet 50 mg PO DAILY 02/26/24 04/17/24 Unknown History metformin 500 mg tablet,extended 500 mg PO DAILY 02/26/24 04/17/24 Unknown History release 24 hr Exam Airway Mallampati Class: II TM Dist: >3cm Neck ROM: Full Heart: rrr Lungs: cta Assessment and Plan Assessment Anesthesia Assessment: Anesthesia Plan Discussed Final Anesthetic Review Family History of Problems with Anesthesia: No History of Problems with Anesthesia: No NPO: Yes ASA Class: III Final Preanesthetic Review: No Changes in Pt Med Stat, Meds/Allgs Chart Reviewed, Consent Obtained/Reviewed and Anes Risks/Benef Reviewed Patient Risk: Intermediate Procedure Risk: Low Anesthetic Plan Anesthetic Plan: GA Disposition: Standard PACU
[2024-04-17] VITALS (9 sets, daily range): BP systolic 148–173; BP diastolic 82–94; PULSE 55–73; RESP 12–18; TEMP 36.1–36.7; O2SAT 97–100; BMI 34.6
[2024-04-17] MEDS: Lactated Ringers 1,000 ML 100 ML IVCONT (07:55)
[2024-04-17 08:07] LABS: Glucose, Whole Blood 140 mg/dL (60-115)
--- NOTE | 2024-04-17 09:51 | PM.OP ---
Brief Operative Note Date of Service: 04/17/24 Pre-op diagnosis: Right knee medial meniscus tear, right knee lateral meniscus tear, right knee arthritis Post-op diagnosis: same Procedure: Right knee diagnostic arthroscopy with right knee arthroscopic partial medial and lateral meniscectomies, right knee arthroscopic chondroplasty of the undersurface of the patella Implants: none Surgeon: Sam Mata MD Anesthesia: GLMA Was an Aluminum Siding Installer used for this Procedure?: No Estimated blood loss (mL): 10 Pathology: none sent Condition: stable Disposition: PACU
--- NOTE | 2024-04-17 09:52 | W.PM.OPN ---
Operative Note Operative Note Date of Service: 04/17/24 Narrative: After the patient was identified as Carrie Mcleod and her right knee was initialed by myself they were brought to the operating room where general anesthesia was induced by the anesthesiologist in routine fashion. The patient was given 2 g of IV Ancef for infection prophylaxis. A formal time-out was completed. The patient's right lower extremity was prepped and draped in sterile fashion. Marcaine with epinephrine was injected into the planned incision sites as well as their right knee joint. A # 11 scalpel blade was used to make an anterolateral portal 1 cm proximal to the joint line and 1 cm lateral to the patellar tendon. Blunt trocar technique was used into the suprapatellar pouch with the knee in extension. Diagnostic arthroscopy showed multiple bands of thickened plica which would be excised at the end of the procedure. There were no loose bodies or abnormalities found in either the medial or lateral gutters. There were diffuse grades 1 and 2 degenerative changes of the undersurface of the patella as well as grade 1 degenerative changes of the trochlear groove. The patient's knee was flexed to 45 degrees and a valgus force was placed upon it. The medial compartment was entered. An anteromedial portal was made 1 cm proximal to the joint line and 1 cm medial to the patellar tendon. Probing of the medial meniscus showed a radial tear of the posterior horn. A partial medial meniscectomy was performed using the arthroscopic shaver. Following the partial meniscectomy the remainder of the meniscus tissue was stable. There were diffuse grades 1 and 2 degenerative changes of the medial femoral condyle as well as diffuse grade 1 degenerative changes of the medial tibial plateau. The articular surfaces of the medial femoral condyle and medial tibial plateau were already smooth so no chondroplasty was indicated. The patient's knee was then placed into a neutral position. There was no injury to the anterior cruciate ligament. The patient's knee was then placed into the figure of 4 position and the lateral compartment was entered. There were minimal degenerative changes of the lateral femoral condyle and lateral tibial plateau. There was a radial tear of the anterior horn of the lateral meniscus. Thus, a partial lateral meniscectomy was performed using the arthroscopic shaver. Following the partial meniscectomy the remainder of the meniscus tissue was stable. The patient's knee was once again brought into extension and the suprapatellar pouch was entered. The arthroscopic shaver and the ArthroCare Wand were used to excise the thickened bands of plica. The undersurface of the patella was then made smooth using the arthroscopic shaver. The articular surface of the trochlear groove was already smooth so no chondroplasty was indicated. The knee joint was irrigated and then drained. All arthroscopic instruments were removed. The 2 portals were closed with 3-0 nylon interrupted suture. The knee joint was injected with Marcaine. Dry sterile dressing and Naveed bandages were placed over the patient's knee. The patient was awoken and extubated in the operating room. They were transferred to the recovery room in stable condition.
[2024-04-17] MEDS: fentaNYL citrate/PF 100 MCG/2 ML VIAL 25 MCG IVPUSH ×3 (09:57→10:28)
[2024-04-17] MEDS: cefTRIAXone sodium 1 GM in 0.9 % Sodium Chloride 50 ML IV (10:12)
== END 2024-04-17 11:17 | disposition home or self-care (01) ==
PROVIDERS: PCP Internal Medicine; Visit Provider Orthopaedic Surgery
PROC: (CPT 29870; principal; 2024-04-17 09:00)
DX: S83.281A Other tear of lateral meniscus, current injury, right knee, initial encounter (principal); S83.241A Other tear of medial meniscus, current injury, right knee, initial encounter; M67.51 Plica syndrome, right knee; M17.11 Unilateral primary osteoarthritis, right knee; M23.51 Chronic instability of knee, right knee; X58.XXXA Exposure to other specified factors, initial encounter; X50.1XXA Overexertion from prolonged static or awkward postures, initial encounter; Y93.F9 Activity, other caregiving; Y92.9 Unspecified place or not applicable; Y99.0 Civilian activity done for income or pay; D05.12 Intraductal carcinoma in situ of left breast; Z79.811 Long term (current) use of aromatase inhibitors; Z87.891 Personal history of nicotine dependence; Z98.890 Other specified postprocedural states
CPT/HCPCS: 29880; 29876; 82947; J0131; J0171; J0690; J0696; J1100; J1885; J2250; J2405; J2704; J2795; J3010

== ENCOUNTER → 2024-04-17 07:31 | Outpatient (BNV) | payer OTHER, SELFPAY | PROVIDERS: PCP Internal Medicine; Visit Provider Orthopaedic Surgery | DX: S83.241A Other tear of medial meniscus, current injury, right knee, initial encounter (principal); S83.281A Other tear of lateral meniscus, current injury, right knee, initial encounter | CPT/HCPCS: 29880 ==

== ENCOUNTER 2024-04-29 11:23 | Outpatient (AMB) | payer OTHER, SELFPAY ==
--- NOTE | 2024-04-29 11:30 | MHC.OFFVIS ---
Intake Visit Reasons: PO-Rt Knee 04/17/24 Intake Note: Carrie a 58 year old female who presents today for a post operative visit s/p right knee on 04/17/24. Patient reports she is doing well, states some stiffness and that she just started applying full weight about 2 days ago. Allergies No Known Allergies Allergy (Verified 04/29/24 11:34) Medication List - Last Reconciled 04/29/24 by Sarina Still PA-C acetaminophen 500 mg PO Q6H PRN arm brace (Wrist Brace) - cock-up splint - wear nightly on right wrist letrozole 2.5 mg PO DAILY losartan 50 mg PO DAILY metformin ER 500 mg PO DAILY oxycodone 5 mg PO Q6H PRN 1 week valsartan 80 mg PO DAILY venlafaxine ER 150 mg PO DAILY HPI HPI PO-Rt Knee 04/17/24 DR: Details: 58-year-old female who returns to the office today for post-op right knee , 04/17/[address] Mata. She reports she has some soreness and stiffness in her knee however she is doing well otherwise. She just started applying full weight on her knee about 2 days ago. She has no other concerns today. 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 Adenoma of colon Macromastia Surgical History Hx of hysterectomy S/P breast lumpectomy H/O breast biopsy Family History Mother Hyperlipidemia Diabetes HTN (hypertension) Depression Father Bone cancer Paternal Aunt Breast cancer Brother Anxiety Social History Household Members: Significant Other and Children Alcohol intake: current Alcohol intake frequency: holidays/special occasions only Patient Tobacco Use Status: Former Tobacco user Review of Systems Const All systems reviewed & are unremarkable except as noted in HPI and below Physical Exam Extrem Other: Right knee: Incision clean, dry and intact. No redness. ROM is 0-95 degrees. Calf supple, nontender. NVI. Results Reviewed Results Reviewed: Brief Operative Note Date of Service: 04/17/24 Pre-op diagnosis: Right knee medial meniscus tear, right knee lateral meniscus tear, right knee arthritis Post-op diagnosis: same Procedure: Right knee diagnostic arthroscopy with right knee arthroscopic partial medial and lateral meniscectomies, right knee arthroscopic chondroplasty of the undersurface of the patella Assessment & Plan Assessment & Plan (1) Tear of medial meniscus of right knee: Code(s): S83.241A - Other tear of medial meniscus, current injury, right knee, initial encounter Category: Medical (2) Osteoarthritis of right knee: Code(s): M17.11 - Unilateral primary osteoarthritis, right knee Category: Medical Plan Sutures removed today, steri strips applied. She was given an order for physical therapy to work on ROM, quad strength and gait training. She will limit any type of deep bending, kneeling, twisting, pivoting, or squatting for the next 6 weeks. She will see me back in [address] Mata, sooner if needed. Orders: Orders PT Evaluation and Treatment 04/29/24 S83.241A - Other tear of medial meniscus, current injury, right knee, initial encounter, M17.11 - Unilateral primary osteoarthritis, right knee Patient Instructions: Scribed for Sarina Still PA-C, by Patrick Clinton medical insurance clerk, on 04/29/2024 at 11:15 AM EST.? I, Sarina Still PA-C, have personally reviewed and agree with the information entered by the scribe. Coding Level of Care Code Global (56889) Diagnoses Tear of medial meniscus of right knee S83.241A Osteoarthritis of right knee M17.11
== END 2024-04-29 12:00 | disposition home or self-care (01) ==
PROVIDERS: PCP Internal Medicine; Visit Provider Physician Assistant
DX: S83.241A Other tear of medial meniscus, current injury, right knee, initial encounter (principal); M17.11 Unilateral primary osteoarthritis, right knee
CPT/HCPCS: 99024

== ENCOUNTER → 2024-04-29 11:23 | Outpatient (BNVA) | payer OTHER, SELFPAY | PROVIDERS: PCP Internal Medicine; Visit Provider Physician Assistant | DX: S83.241D Other tear of medial meniscus, current injury, right knee, subsequent encounter (principal); M17.11 Unilateral primary osteoarthritis, right knee | CPT/HCPCS: 99212 ==

== ENCOUNTER 2024-06-03 09:48 | Outpatient (AMB) | payer OTHER, SELFPAY ==
--- NOTE | 2024-06-03 09:52 | MHC.OFFVIS ---
Intake Visit Reasons: PO-4wk f/u s/p Rt Knee 04/17/24 Intake Note: Carrie is a 58 year old female who presents to the office today for a 4wk f/u s/p Rt Knee 04/17/24 .Pt states she is feeling well. Pt states her ROM is great and she doesn't believe she needs PT at this time. Would like to return to work. She also reports progressively worsening right thumb pain. She has been seen by rheumatology in the past. 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 Adenoma of colon Macromastia Surgical History Hx of hysterectomy S/P breast lumpectomy H/O breast biopsy Family History Mother Hyperlipidemia Diabetes HTN (hypertension) Depression Father Bone cancer Paternal Aunt Breast cancer Brother Anxiety Social History Household Members: Significant Other and Children Alcohol intake: current Alcohol intake frequency: holidays/special occasions only Patient Tobacco Use Status: Former Tobacco user Physical Exam Extrem Other: Right knee examination shows that the surgical incisions are well healed, no erythema, minimal discomfort with range of motion, no instability Assessment & Plan Assessment & Plan (1) Knee pain, right: Code(s): M25.561 - Pain in right knee Category: Medical Qualifiers: Chronicity: chronic Qualified Code(s): M25.561 - Pain in right knee; G89.29 - Other chronic pain Plan Ms. Mcleod continues to do very well after undergoing right knee arthroscopic surgery on 04/17/2024. She will continue to progress to activities as tolerated. I did clear her to return to full duty at work. I will also arrange for her to have a follow-up appointment with Dr. Jeff for further evaluation of her right thumb and wrist pains. Feel free to call me at any time should questions regarding her orthopedic management arise. Coding Level of Care Code Global (94090) Diagnoses Chronic pain of right knee M25.561; G89.29 Chronicity: chronic
== END 2024-06-03 10:26 | disposition home or self-care (01) ==
PROVIDERS: PCP Internal Medicine; Visit Provider Orthopaedic Surgery
DX: M25.561 Pain in right knee (principal); G89.29 Other chronic pain
CPT/HCPCS: 99024

== ENCOUNTER → 2024-06-03 09:48 | Outpatient (BNVA) | payer OTHER, SELFPAY | PROVIDERS: PCP Internal Medicine; Visit Provider Orthopaedic Surgery | DX: M25.561 Pain in right knee (principal); G89.29 Other chronic pain | CPT/HCPCS: 99212 ==

== ENCOUNTER 2024-07-08 15:03 | Outpatient (AMB) | payer OTHER, SELFPAY ==
--- NOTE | 2024-07-08 15:12 | MHC.OFFVIS ---
Intake Visit Reasons: Newprob-Right thumb/wrist pain Intake Note: Carrie is a 58 year old right hand dominant female who presents today for a new problem visit with complaints of right wrist and thumb pain for 3 years. Patient reports all her fingers of the right hand of locking on her when she closes her fist or she will wake up that way with extra stiffness. Left hand index finger and thumb. Right greater than left, left hand no numbness yet but inflammation, trigger thumb. Pt reports she drops things. Gripping, gasping, and lifting difficult. Braces give no relief. Worse during the day when she wakes up. Runs her hands under cold water for relief. 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 A1c is at 7 she believes. Allergies No Known Allergies Allergy (Verified 07/08/24 15:51) HPI HPI Newprob-Right thumb/wrist pain: Details: Patient is a 58-year-old female who presents for evaluation of numbness and tingling of the right hand, with associated pain, as well as pain in the right thumb and wrist, ongoing for approximately 3 years. The patient reports that her numbness and tingling are intermittent, but daily, and much worse at night. The patient also reports that she has noticed some associated weakness with gripping or grasping, and this has been ongoing for approximately a year. The patient also states that she has significant pain over the radial styloid of the wrist that has been ongoing for approximately the same time, and states that she has had injections here, but they were largely ineffective and more than 1 year ago. Of note, the patient also states that she notices some locking and catching of her left thumb, with associated pain. Patient denies any numbness or tingling of the left hand. No other acute complaints or concerns at this time. 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 Adenoma of colon Macromastia Surgical History Hx of hysterectomy S/P breast lumpectomy H/O breast biopsy Family History Mother Hyperlipidemia Diabetes HTN (hypertension) Depression Father Bone cancer Paternal Aunt Breast cancer Brother Anxiety Social History (Updated 07/08/24 @ 15:51 by KASI Sims) Household Members: Significant Other and Children Alcohol intake: current Alcohol intake frequency: holidays/special occasions only Patient Tobacco Use Status: Former Tobacco user e-Cigarette/Vaping Use: Currently Using Current occupational status: employed 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 Good APB muscle firing and good finger cross. Vascular: Capillary refill brisk. Pain: Patient does report significant tenderness to palpation over the radial styloid and 1st dorsal compartment ROM: Patient can make a fist and extend all their digits. Skin: No lacerations or abrasions noted. General: No ecchymosis. No erythema or evidence of infection. Positive Thomas on the right when compared to the left Left hand exam Patient is alert, oriented, and in no acute distress. Neuro: Median, ulnar, radial nerves motor and sensory intact and sensation is normal to the tips of all digits. Vascular: Cap refill brisk Pain: Patient reports tenderness to palpation over the A1 odin of the left thumb, as well as pain with locking and catching ROM: Visible and palpable locking and catching of the left thumb noted Patient is able to flex and extend all other digits of the left hand fully without difficulty, able to make a closed fist Skin: No lacerations or abrasions. General: No ecchymosis, erythema, or evidence of infection. Psych: Appears grossly normal Affect normal Attitude cooperative Office Procedures Tendon Injection Tendon Injection Details: Left trigger thumb injection [id number] Tendon Sheath Injection All charges added?: Procedure code (CPT) selection complete Results Reviewed Results Reviewed: X-rays of the right hand taken today and independently reviewed by me, Austen Ayala PA-C, demonstrate no fracture or acute bony abnormality Assessment & Plan Assessment & Plan (1) Carpal tunnel syndrome on right: Code(s): G56.01 - Carpal tunnel syndrome, right upper limb Category: Medical (2) De Quervain's tenosynovitis, right: Code(s): M65.4 - Radial styloid tenosynovitis [de Quervain] Category: Medical (3) Trigger thumb, left thumb: Code(s): M65.312 - Trigger thumb, left thumb Category: Medical Plan 1. Carpal tunnel syndrome, right 2. De Quervain tenosynovitis, right Symptoms intermittent, daily, worse at night I educated the patient about the condition. I discussed both operative and nonoperative treatment options. The patient would like to proceed with surgery. The risks and benefits of operative treatment were discussed with the patient and the patient wishes to proceed with surgery. These risks include, but are not limited to, risk of damage to blood vessels, nerves, tendons, infection, recurrence, incomplete relief of preoperative symptoms, persistent pain, possible need for further surgery, and the risks associated with regional blocks and/or anesthesia. Plan is to take the patient to the operating room at some point in the next few weeks for the following procedures: 1. Right carpal tunnel release under local anesthesia 2. Right 1st dorsal compartment release under local anesthesia All of the preoperative paperwork including the consent was discussed today. All of the patient's questions were answered in the clinic today. The patient understands that they will be in contact with our neurosurgical nurse practitioner to discuss scheduling their procedure. Patient reports diabetes with last A1c of 7, denies blood thinners, asthma, heart issues, lung issues, kidney issues, or current smoking. 3. Left trigger thumb Patient is educated about this condition and the treatment options available. The patient would like to proceed with a steroid injection at this time The risks and benefits of a steroid injection including but not limited to risk of damage to blood vessels, nerves, tendons, infection, skin bleaching, failure to improve symptoms, increased pain, and possible need for further injections or other intervention were discussed with the patient and the patient wishes to proceed with the steroid injection. Once consent was obtained, I sterilely prepped the area over the A1 odin of the flexor tendon sheath of the left thumb. I then injected the flexor tendon sheath with a combination of 1 mL of dexamethasone (4mg/ml), and 1% lidocaine. The patient tolerated the procedure well with no complications. Patient is educated about the potential effects of a steroid injection on her blood sugar levels, and to monitor accordingly If the patient continues to have locking and catching 4-6 weeks following this injection, they may call to schedule appointment to discuss alternative treatment options Follow-up prn Orders: Orders XR wrist RT min 3V 07/08/24 M25.531 - Pain in right wrist Coding Level of Care Code New Pt Level 4 (97699) Diagnoses Carpal tunnel syndrome on right G56.01 De Quervain's tenosynovitis, right M65.4 Trigger thumb, left thumb M65.312 CPT Codes Tendon Injection - Tendon Injection 1: [id number] Tendon Sheath Injection ([id number])
== END 2024-07-08 16:34 | disposition home or self-care (01) ==
PROVIDERS: PCP Internal Medicine
DX: G56.01 Carpal tunnel syndrome, right upper limb (principal); M65.4 Radial styloid tenosynovitis [de Quervain]; M65.312 Trigger thumb, left thumb
CPT/HCPCS: 20550; 99214

== ENCOUNTER 2024-07-08 15:08 | Outpatient (REF) | payer OTHER, SELFPAY ==
--- NOTE | ~2024-07-08 | XR_ITS ---
EXAMINATION: XR WRIST, RIGHT CLINICAL INFORMATION: Right wrist pain. COMPARISON: None available. TECHNIQUE: PA, lateral, and oblique views of the right wrist. FINDINGS: No fracture. Alignment is anatomic with normal joint spaces. No erosions or abnormal soft tissue calcifications. A 3 cm linear radiodensity dorsal to the radius and ulna as only seen on the lateral view is favored to be artifactual in nature XR/XR wrist RT min 3V IMPRESSION: 1. No acute fracture or malalignment. 2. Linear radiodensity dorsal to the radius and ulna as only seen on the lateral view is favored to be artifactual in nature. Electronically signed by: Jason Biswas MD 07/21/2024 11:21 PM EDT
== END 2024-07-08 15:09 | disposition home or self-care (01) ==
LOC: HO.HOSX 15:08
PROVIDERS: PCP Internal Medicine
DX: M25.531 Pain in right wrist (principal); G56.01 Carpal tunnel syndrome, right upper limb; M65.4 Radial styloid tenosynovitis [de Quervain]; M65.312 Trigger thumb, left thumb
CPT/HCPCS: 20550; 73110; 99212; J1100

== ENCOUNTER 2024-09-21 12:06 | Day surgery (SDC) | payer OTHER, SELFPAY ==
[2024-09-21 07:23] VITALS: BMI 36.5
[2024-09-21 12:17] VITALS: BP 144/76; PULSE 76; RESP 18; TEMP 36.9; O2SAT 98
--- NOTE | 2024-09-21 12:51 | MHC.SHP ---
Pre-Procedural Eval Section A - 24 Hr Update-Section A only Date of Service: 09/21/24 The patient is an INPATIENT: No Changes since office visit: No Cold of Flu in the past 2 weeks, No New Medical Problems, No Changes in Medication and No Patient answered all questions The patient has been examined within 24 hours of the surgical procedure. The History & Physical has been completed within 30 days and I have reviewed it.: Yes Section B - Complete if H&P > 30 days Chief Complaint: Radial styloid tenosynovitis [de Quervain],carpal Allergies: Allergies Allergy/AdvReac Type Severity Reaction Status Date / Time No Known Allergies Allergy Verified 07/08/24 15:51 Plan Diagnosis/Plan: Unchanged I have reviewed the history and physical and performed a pertinent physical examination on my patient. No changes have occurred unless specified. Time Spent With Patient Time: Total time managing care of this patient today ____ minutes.
--- NOTE | 2024-09-21 12:51 | W.PM.OPN ---
Operative Note Operative Note Date of Service: 09/21/24 Narrative: Operative Note Preop diagnosis: 1. Carpal tunnel syndrome 2. Right DeQuervain's tenosynovitis Postop diagnosis: Same Procedure: 1. Right carpal tunnel release 2. Right 1st dorsal compartment release 3. Right abductor pollicis longus tenosynovectomy Surgeon: Geetha Jeff MD Topographical Surveyor: None Anesthesia: local block using 1% lidocaine with epinephrine Findings: Thickened transverse carpal ligament Thickened 1st dorsal compartment, with an hourglass deformity of the APL tendon. The EPB was also in a separate compartment. There was also abundant inflamed tenosynovium.. EBL: Less than 5 mL Tourniquet time: None Specimens: None Complications: None Disposition: Brought to recovery room in stable condition Plan: Follow-up for 7-10 days for wound check and suture removal Indications: The patient is 58 years old, with right carpal tunnel syndrome and right DeQuervain's tenosynovitis that have been unresponsive to nonoperative management. The risks and benefits of operative treatment including but not limited to risk of damage to blood vessels, nerves, tendons, infection, persistent pain, persistent symptoms, recurrence or possible need for additional surgery were discussed with the patient and the patient wishes to proceed with surgery. Procedure: Once consent was obtained a local block was performed in the preop area using a combination of 1% lidocaine with epinephrine. The patient was then brought back to the operating suite and placed on the operative table in supine position. A tourniquet was applied to the proximal aspect of the right upper extremity and the limb was prepped and draped in a standard surgical fashion. Once assured that we had a good block, a 2.0 cm longitudinal incision was made centered over the right carpal tunnel. The incision was made through the skin to the subcutaneous tissues using a #15 blade. Dissection was made down to the level of the transverse carpal ligament with care being taken to protect the palmar cutaneous nerve. Once the transverse carpal ligament was clearly visualized, a longitudinal incision was made in the transverse carpal ligament 1st using a #15 blade, then using tenotomy scissors under direct visualization. Care was taken to look for and protect the motor branch of the median nerve when seen in this area. Once satisfied with our carpal tunnel release the wound was irrigated with normal saline. Once assured that we had a good block, a 1.5 cm longitudinal incision was made centered over the 1st dorsal compartment as it passed over the radial styloid of the right wrist. The incision was made through the skin to the subcutaneous tissues using a #15 blade. Careful dissection was made down to the level of the 1st dorsal compartment using tenotomy scissors, with care being taken to protect the nearby branches of the superficial radial nerve. Once the 1st dorsal compartment was exposed, A longitudinal incision was made in the 1st dorsal compartment 1st using a #15 blade, then using tenotomy scissors under direct visualization. The 1st dorsal compartment was noted to be thickened, and an hourglass deformity was appreciated in the APL tendon. There was abundant inflamed tenosynovium about the APL tendon. The EPB tendon was also noted to be in a separate compartment. I performed a tenosynovectomy of the APL tendon, excising the inflamed tenosynovium from about the tendon using iris scissors. I also released the EPB tendon from its separate compartment using a 15. Blade and iris scissors. Following our release, we saw smooth gliding abductor pollicis longus and extensor pollicis brevis tendons. Once satisfied with our 1st dorsal compartment release and carpal tunnel release the wounds were copiously irrigated with normal saline and hemostasis was obtained with a brief period of local pressure. The skin edges were reapproximated with some 5.0 nylon suture material. A sterile dressing was applied. The patient appears to have tolerated the procedure well and with no complications. All digits were well vascularized at the conclusion of the case.
[2024-09-21 14:50] VITALS: BP 167/83; PULSE 80; RESP 18; O2SAT 96
== END 2024-09-21 14:51 | disposition home or self-care (01) ==
PROVIDERS: PCP Internal Medicine; Visit Provider Orthopaedic Surgery
PROC: (CPT 64721; principal; 2024-09-21 13:40)
PROC: (CPT 64721; 2024-09-21 13:40)
DX: G56.01 Carpal tunnel syndrome, right upper limb (principal); M65.4 Radial styloid tenosynovitis [de Quervain]; M25.531 Pain in right wrist; M79.644 Pain in right finger(s); R20.0 Anesthesia of skin; M06.4 Inflammatory polyarthropathy; D05.12 Intraductal carcinoma in situ of left breast; N62 Hypertrophy of breast; Z85.41 Personal history of malignant neoplasm of cervix uteri; Z87.891 Personal history of nicotine dependence; Z98.890 Other specified postprocedural states
CPT/HCPCS: 64721; 26145; 25000; J0171; J2003

== ENCOUNTER → 2024-09-21 12:06 | Outpatient (BNV) | payer OTHER, SELFPAY | PROVIDERS: PCP Internal Medicine; Visit Provider Orthopaedic Surgery | DX: M65.4 Radial styloid tenosynovitis [de Quervain] (principal); G56.01 Carpal tunnel syndrome, right upper limb | CPT/HCPCS: 25000; 64721 ==

== ENCOUNTER 2024-10-06 13:40 | Outpatient (AMB) | payer OTHER, SELFPAY ==
--- NOTE | 2024-10-06 13:50 | A.OFFVIS_ITS ---
Intake Visit Reasons: PO RT CTR/DC release 09/21/24 AR Intake Note: Carrie is a 58 year old right hand dominant female who presents today for a post operative visit s/p right carpal tunnel release, right 1st dorsal compartment release and right abductor pollicis longus tenosynovectomy DOS: 09/21/2024 w/ Dr Jeff. Pt states she is overall feeling well and denies any numbness,or tingling in her hand or fingers. Allergies No Known Allergies Allergy (Verified 10/06/24 13:50) HPI HPI PO RT CTR/DC release 09/21/24 AR: Details: Patient is a 58-year-old female who presents for postoperative evaluation status post right carpal tunnel release and 1st dorsal compartment release, DOS 09/21/2024. Today, the patient reports that she is feeling very well, and does not experience any numbness or tingling in hand at baseline. The patient also denies any pain or discomfort at the right carpal tunnel incision site. However, the patient does report that she is still experiencing pain in the right 1st dorsal compartment, but this is decreased significantly from prior to surgery. Patient states that she has no concerns for infection around incision sites. Patient states she has been very careful of this, as she does have in his in his concern for wound healing capacity. Patient states that she will eventually need any EMG and nerve conduction study for the left hand, as she does experience some intermittent numbness and tingling in the left thumb, but states she would like to hold off on this for the time being. No other acute complaints or concerns at this time. 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 Adenoma of colon Macromastia Surgical History Hx of hysterectomy S/P breast lumpectomy H/O breast biopsy Family History Mother Hyperlipidemia Diabetes HTN (hypertension) Depression Father Bone cancer Paternal Aunt Breast cancer Brother Anxiety Social History (Updated 07/08/24 @ 15:51 by KASI Sims) Household Members: Significant Other and Children Alcohol intake: current Alcohol intake frequency: holidays/special occasions only Patient Tobacco Use Status: Former Tobacco user e-Cigarette/Vaping Use: Currently Using Current occupational status: employed Current occupation: right handed/ [employer] Review of Systems Const All systems reviewed & are unremarkable except as noted in HPI and below Physical Exam Extrem Other: Patient is alert, oriented, and in no acute distress. Neuro: Normal sensation of the tips of all digits of the right hand at this time Vascular: Cap refill brisk Pain: Patient reports some very minor tenderness to palpation about the radial styloid and incision site over the 1st dorsal compartment of the right hand No tenderness to palpation at or about the incision site on the volar right wrist Range of motion testing of the right hand painless Mildly positive Thomas on the right, improved from prior to surgery ROM: Patient is able to make a closed fist and extend all digits of the right hand fully and without difficulty Skin: No lacerations or abrasions. General: No ecchymosis, erythema, or evidence of infection. Psych: Appears grossly normal Affect normal Attitude cooperative Assessment & Plan Assessment & Plan (1) Paresthesia of hand, bilateral: Code(s): R20.2 - Paresthesia of skin Category: Medical (2) De Quervain's tenosynovitis, right: Code(s): M65.4 - Radial styloid tenosynovitis [de Quervain] Category: Medical Plan 1. Right carpal tunnel syndrome status post carpal tunnel release 2. Right de Quervain tenosynovitis status post 1st dorsal compartment release DOS 09/21/2024 Patient appears to be recovering in the postoperatively Patient is educated about the typical recovery course At this time, patient is informed that she will not require any acute follow-up with us for her right hand surgeries, as she appears to be recovering very well The patient also states she would like to hold off on any further intervention for the numbness and pain she is experiencing in the left hand, as she would like to hold off on any surgeries until after the holidays. Patient will follow-up after the holidays when she is ready to explore EMG and nerve conduction study for the left side, sooner any acute concerns Coding Level of Care Code Global (24160) Diagnoses Paresthesia of hand, bilateral R20.2 De Quervain's tenosynovitis, right M65.4
== END 2024-10-06 13:59 | disposition home or self-care (01) ==
PROVIDERS: PCP Internal Medicine
DX: R20.2 Paresthesia of skin (principal); M65.4 Radial styloid tenosynovitis [de Quervain]
CPT/HCPCS: 99024

== ENCOUNTER → 2024-10-06 13:40 | Outpatient (BNVA) | payer OTHER, SELFPAY | PROVIDERS: PCP Internal Medicine | DX: R20.2 Paresthesia of skin (principal); M65.4 Radial styloid tenosynovitis [de Quervain] | CPT/HCPCS: 99212 ==